=== PATIENT | male | born 1960 | race Caucasian/White ===

== ENCOUNTER 2016-11-04 08:27 | Day surgery (SDC) | payer BC ==
[2016-11-01 10:12] VITALS: BMI 28.7
[~2016-11-04 08:27] MED LIST: LACTATED RINGERS 1,000 ML IV SCH; LIDOCAINE 1% 20 ML VIAL (10MG/ML) FOR IV START INTRADERMA PRN
[2016-11-04 10:20] VITALS: TEMP 97.1
[2016-11-04] MEDS ORDERED: PROPOFOL 10 MG/ML 20 ML VIAL IV ONE (10:21)
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
--- NOTE | 2016-11-04 10:39 | P.OP ---
Date of Procedure: 11/04/16 Preoperative Diagnosis: Screening colonoscopy Postoperative Diagnosis: Normal colon Procedure(s) Performed: Colonoscopy Implants: Anesthesia: MAC Surgeon: Alberto Fatima Pathology: none sent Condition: stable Disposition: PACU Indications for Procedure: Operative Findings: Description of Procedure: PROCEDURE: The patient was placed on the endoscopy table in the lateral position. Digital rectal examination was performed which revealed no abnormalities. The prostate was symmetrical without nodules. Flexible colonoscope was then placed in the patient's anus and passed throughout the entire colon. The ileocecal valve was visualized. The cecum, ascending, transverse, descending and sigmoid colon were normal. The rectum was normal as well. There were no masses, polyps or diverticula noted in the entire colon. SUMMARY OF FINDINGS: Normal colonoscopy.
[2016-11-04 10:41] VITALS: RESP 16
[2016-11-04 10:53] VITALS: BP 124/83; PULSE 67
== END 2016-11-04 11:12 | disposition home or self-care (01) ==
LOC: ORWHC2ENDO 08:27
PROVIDERS: ATTEND Surgery
DX: Z12.11 Encounter for screening for malignant neoplasm of colon (principal); I10 Essential (primary) hypertension; Z87.891 Personal history of nicotine dependence; Z79.82 Long term (current) use of aspirin; Z79.899 Other long term (current) drug therapy; Z88.6 Allergy status to analgesic agent
CPT/HCPCS: J2704; G0121

== ENCOUNTER 2019-04-07 05:50 | Day surgery (SDC) | payer BC ==
[2019-04-02 12:01] VITALS: BMI 29.1
[~2019-04-07 05:50] MED LIST changes: +DEXAMETHASONE SOD PHOSPHATE 10 MG/ML 1 ML VIAL IV ONE; +HEPARIN SODIUM,PORCINE 5,000 UNIT/ML 1 ML VIAL SQ ONE; -LACTATED RINGERS 1,000 ML IV SCH; -LIDOCAINE 1% 20 ML VIAL (10MG/ML) FOR IV START INTRADERMA PRN; +ONDANSETRON 4 MG/2 ML VIAL IVP ONE
[2019-04-07] MEDS: LACTATED RINGERS 1,000 ML IV SCH ×2 (06:30→06:38)
[2019-04-07] MEDS: LIDOCAINE 1% 20 ML VIAL (10MG/ML) FOR IV START INTRADERMA PRN ×2 (06:30→06:39)
[2019-04-07] MEDS ORDERED: fentaNYL (PF) 50 MCG/ML 2 ML AMP IV ONE (07:00)
[2019-04-07] MEDS ORDERED: MIDAZOLAM 2 MG/2 ML VIAL IV ONE (07:00)
--- NOTE | 2019-04-07 07:33 | P.ANPRN ---
Procedure Note - Anesthesia - Nerve Block Performed Bilateral Transversus Abdominis Single Time Out Performed: Yes Date of Procedure: 04/07/19 Procedure Start Time: 07:00 Procedure Stop Time: 07:10 Location of Patient: PreOp Indication: Acute Post-Operative Pain, Requested by Surgeon Sedation Type: Sedate with meaningful contact maintained Preparation: Sterile Prep Position: Supine Catheter: None Needle Types: Pajunk Needle Gauge: 21 Ultrasound used to visualize needle placement: Yes Ultrasound used to observe medication spread: Yes Injectate: 0.5% Ropivacaine (see comment for volume) (ropivacaine 0.5% 20 cc + decadron 4mg-- per side) Blood Aspirated: No Pain Paresthesia on Injection Noted: No Resistance on Injection: Normal Image Stored and Saved: Yes Events: Uneventful and Well Tolerated
[2019-04-07] MEDS ORDERED: BUPIVACAINE (PF) 0.25% 30 ML VIAL SQ ONE ×2 (07:39→08:35)
[2019-04-07] MEDS ORDERED: fentaNYL (PF) 50 MCG/ML 2 ML AMP ONE (08:05)
[2019-04-07] MEDS ORDERED: ROPIVACAINE 5 MG/ML 30 ML VIAL ONE (08:05)
[2019-04-07] MEDS ORDERED: DEXAMETHASONE SOD PHOSPHATE 4 MG/ML 1 ML VIAL ONE (08:05)
[2019-04-07] MEDS ORDERED: PROPOFOL 10 MG/ML 20 ML VIAL IV ONE (08:05)
[2019-04-07] MEDS ORDERED: KETOROLAC 30 MG/ML 1 ML VIAL ONE (08:05)
[2019-04-07] MEDS ORDERED: MIDAZOLAM 2 MG/2 ML VIAL ONE (08:05)
[2019-04-07] MEDS ORDERED: ROCURONIUM BROMIDE 10 MG/ML 10 ML VIAL IV ONE (08:05)
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
[2019-04-07 09:34] VITALS: TEMP 97.6
[2019-04-07] MEDS: HYDROmorphone 0.5 MG/0.5 ML SYRINGE IVP PRN ×2 (09:36→09:45)
--- NOTE | 2019-04-07 09:54 | P.OP ---
Date of Procedure: 04/07/19 Preoperative Diagnosis: Left inguinal hernia Postoperative Diagnosis: Left inguinal hernia Adhesions Procedure(s) Performed: Laparoscopic lysis of adhesions Laparoscopic robotic-assisted repair of left inguinal hernia Anesthesia: MALIK Surgeon: Alberto Faitma Pathology: none sent Condition: stable Disposition: PACU Description of Procedure: The patient's placed on the operating table in the supine position. The patient received general anesthesia. The patient's abdomen was prepped and draped in usual sterile fashion. The skin was anesthetized 1% local Xylocaine at the incision sites. Using an 11 blade a skin incision was made at the umbilicus. The fascia was grasped with a Lata and then the peritoneal cavity was entered with the Veress needle. Position of the Veress needle was confirmed with a positive drop test. After adequate insufflation a 5 mm trocar was placed into the peritoneal cavity. The Laparoscope was placed the peritoneal cavity. And a robotic 8 mm trocar was placed in the right lateral position and then another 8 mm robotic trochars placed in the left lateral position. The original 5 mm trocar was exchanged for a 12 mm trocar. The patient was placed in reverse Trendelenburg and then the patient was docked to the robot. There were adhesions seen in the left lower quadrant. These were lysed using sharp dissection. Next the peritoneum over top of the hernia was incised and then using blunt and sharp dissection and electrocautery the hernia sac was dissected free from the floor of the inguinal canal. The hernia sac was completely reduced into the peritoneal cavity. And then using the Pro tool maker apprentice mesh the hernia was repaired. The peritoneum was then sutured with 20V lock suture. The patient was then undocked the robot. The needle was withdrawn from the peritoneal cavity. The umbilical trocar site was closed with 0 Ethibond suture. The skin was closed interrupted 3-0 Monocryl suture. Dermabond dressing was applied. Patient was sent to recovery in stable condition.
[2019-04-07] MEDS ORDERED: HYDROcodone/APAP 5-325MG 1 EACH TAB PO ONE (10:35)
[2019-04-07 10:47] VITALS: RESP 16
[2019-04-07 12:15] VITALS: BP 104/70; PULSE 75
== END 2019-04-07 12:48 | disposition home or self-care (01) ==
LOC: OR 05:50
PROVIDERS: ATTEND Surgery
DX: K40.90 Unilateral inguinal hernia, without obstruction or gangrene, not specified as recurrent (principal); K66.0 Peritoneal adhesions (postprocedural) (postinfection); I10 Essential (primary) hypertension; Z88.6 Allergy status to analgesic agent; Z87.891 Personal history of nicotine dependence; Z79.82 Long term (current) use of aspirin; Z79.899 Other long term (current) drug therapy; Z98.890 Other specified postprocedural states; Z80.0 Family history of malignant neoplasm of digestive organs
CPT/HCPCS: 64488; 49650; C1781; J2250; J1644; J1100 ×2; J0690; J2405; J3010; J1885; J2795; J2704; J1170

== ENCOUNTER 2021-07-18 16:31 | Emergency (ER) | payer BC ==
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
[2021-07-18 21:02] VITALS: BP 185/90; PULSE 80; RESP 18; TEMP 98
== END 2021-07-18 20:40 | disposition home or self-care (01) ==
LOC: EC 16:31
DX: I82.401 Acute embolism and thrombosis of unspecified deep veins of right lower extremity (principal); I10 Essential (primary) hypertension; Z88.6 Allergy status to analgesic agent
CPT/HCPCS: 99283

== ENCOUNTER → 2021-07-18 | Outpatient (CLI) | payer BC ==
--- NOTE | 2021-07-18 16:47 | US ---
EXAMINATION TYPE: US venous doppler duplex LE RT DATE OF EXAM: 07/18/2021 4:06 PM COMPARISON: NONE CLINICAL HISTORY: I82.409 DVT. right knee pain SIDE PERFORMED: right TECHNIQUE: The lower extremity deep venous system is examined utilizing real time linear array sonog mino with graded compression, doppler sonography and color-flow sonography. VESSELS IMAGED: Common Femoral Vein Deep Femoral Vein Greater Saphenous Vein * Femoral Vein Popliteal Vein Small Saphenous Vein * Proximal Calf Veins (* superficial vessels) Right Leg: *positive for DVT. non-occlusive thrombus right popliteal vein prox IMPRESSION: There is some limited thrombus in the popliteal vein and consistent with chronic deep vei n thrombosis.
== END | disposition home or self-care (01) ==
LOC: RADUSWWP 15:31
PROVIDERS: ATTEND Family Medicine
DX: I82.531 Chronic embolism and thrombosis of right popliteal vein (principal)

== ENCOUNTER → 2021-11-30 | Outpatient (CLI) | payer BC ==
--- NOTE | 2021-11-30 18:08 | MR ---
EXAMINATION TYPE: MR shoulder RT wo con DATE OF EXAM: 11/30/2021 5:27 PM COMPARISON: Outside MRI 05/21/2021 HISTORY: Right shoulder pain, and weakness for 1 year TECHNIQUE: Multiplanar multispin echo imaging of the right shoulder was performed. FINDINGS: Rotator cuff : There is a new left full-thickness retracted tear infraspinatus tendon with fluid fill ed gap of about 1 cm and distal maceration seen. No definite muscular atrophy seen at this time. Ther e is some moderate tendinosis of the supraspinatus tendon from its critical zone through the sella hu meral attachment. There is macerated.Partial tear at the humeral attachment of the supraspinatus. The re is also thinning of the supraspinatus noted. Subscapularis tendon is intact and demonstrates mild tendinosis. Bursa: No evidence for adhesive capsulitis. Musculature: There is no muscular tear, contusion, or atrophy. Acromioclavicular joint : There are mild degenerative changes of the acromioclavicular joint. There is no anterior or lateral acromial downsloping. Osseous structures : There are no fractures or regions of abnormal bone marrow signal intensity. Long biceps tendon : The biceps tendon is normally situated within the bicipital groove. No complete or partial biceps tendon tear is present. Glenohumeral Joint fluid : Moderate joint effusion noted. Cartilage and Bone : Suspected posterior labral tear. Labrum : There are no SLAP or soft tissue Bankart lesions. No paralabral cysts are seen. OTHER FINDINGS : none IMPRESSION: 1. Full-thickness and retracted tear involving the infraspinatus tendon with 1 cm fluid filled gap. 2. Moderate tendinosis of the supraspinatus tendon partial tear noted distally and associated macerat ion. 3. Moderate joint effusion seen. 4. Suspected posterior labral tear.
== END | disposition home or self-care (01) ==
LOC: RADMRIMAIN 16:33
PROVIDERS: ATTEND Orthopaedic Surgery Sports Medicine
DX: M75.121 Complete rotator cuff tear or rupture of right shoulder, not specified as traumatic (principal); M25.411 Effusion, right shoulder

== ENCOUNTER 2024-08-16 11:57 | Day surgery (SDC) | payer BC ==
[2024-08-13 10:19] VITALS: BMI 29.2
[~2024-08-16 11:57] MED LIST changes: -DEXAMETHASONE SOD PHOSPHATE 10 MG/ML 1 ML VIAL IV ONE; -HEPARIN SODIUM,PORCINE 5,000 UNIT/ML 1 ML VIAL SQ ONE; +LACTATED RINGERS 1,000 ML IV SCH; +LIDOCAINE 1% (10MG/ML) FOR IV START INTRADERMA PRN; -ONDANSETRON 4 MG/2 ML VIAL IVP ONE
[2024-08-16] MEDS: IV FLUID CONTINUATION 1,000 ML IV ONE ×2 (12:18→13:39)
[2024-08-16 12:33] VITALS: TEMP 97.4
[2024-08-16] MEDS ORDERED: LIDOCAINE 1% INJ 10MG/ML (20 ML MDV) ONE (12:59)
[2024-08-16] MEDS ORDERED: PROPOFOL 10 MG/ML 20 ML VIAL IV ONE (12:59)
[2024-08-16] MEDS ORDERED: GLUCAGON 1 MG/ML VIAL ONE (12:59)
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
--- NOTE | 2024-08-16 13:41 | P.OP ---
Date of Procedure: 08/16/24 Preoperative Diagnosis: Family history of colon cancer Postoperative Diagnosis: Diverticulosis Procedure(s) Performed: Colonoscopy Anesthesia: MAC Surgeon: Alberto Fatima Pathology: none sent Condition: stable Disposition: PACU Description of Procedure: Patient was placed on the endoscopy table in the lateral position. He received IV sedation. Digital rectal exams performed. This revealed no abnormalities. Flex colonoscope was then placed patient Anaspaz throughout the colon. Scope could not be advanced beyond the left colon secondary to tortuosity bowel. This point scope withdrawn and then the pediatric scope was introduced to the rectum and passed throughout the colon. Scope could not be passed beyond the left colon. Several times were made to maneuver the colonoscope however this was not able to be advanced. At this point the scope withdrawn. There were diverticular changes. In the left and sigmoid colon. Scope was Ruback the rectum this appeared normal. Scope withdrawn the patient. Patient had a for a barium enema.
[2024-08-16 13:58] VITALS: BP 141/99; PULSE 78; RESP 14
== END 2024-08-16 14:23 | disposition home or self-care (01) ==
LOC: ORWHC2ENDO 11:57
PROVIDERS: ATTEND Surgery
DX: K57.30 Diverticulosis of large intestine without perforation or abscess without bleeding (principal); Z80.0 Family history of malignant neoplasm of digestive organs; I10 Essential (primary) hypertension; Z87.891 Personal history of nicotine dependence; Z88.6 Allergy status to analgesic agent; Z79.82 Long term (current) use of aspirin
CPT/HCPCS: 45330; J1610; J2003; J2704

== ENCOUNTER → 2024-08-17 | Outpatient (CLI) | payer BC ==
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
== END | disposition home or self-care (01) ==
LOC: RADFLMAIN 07:12
PROVIDERS: ATTEND Surgery
DX: Z53.9 Procedure and treatment not carried out, unspecified reason (principal)
CPT/HCPCS: 74270